=== PATIENT | male | born 1985 | race Caucasian/White ===

== ENCOUNTER 2022-01-19 09:40 | Outpatient (CLI) | payer OTHER, SELFPAY ==
--- OUTSIDE RECORDS SUMMARY | 2022-01-19 09:49 | XMS_ITS | Encounter Summary ---
:1985 Author Organization [employer] Address [address] [place] [address] Care Team Providers Name Role Phone Unavailable Primary Care Provider Unavailable Reason for Referral Procedure/Equipment (Routine) - Closed Specialty Diagnoses / Procedures Referred By Contact Refer red To Contact Diagnoses Metatarsalgia of both feet Plantar fasciitis Cresencio Wiley DPM [address] [place], [place] [address] Referral ID Status Reason Start Date Expiration Date Visits Requ ested Visits Authorized [id number] Closed 10/13/2021 01/12/2023 1 1 Scheduling Instructions Your provider has recommended an appoint ment with [facility]. You may call [phone] t o schedule your appointment. We suggest you call your health insurance company about your coverage and benefits for this appointment. Reason for Visit Reason Comments CONSULT Foot Pain Bilateral bone spurs Encounter Details Date Type Department Care Team Description 10/13/2021 Office Visit Cresencio Rouse, Metatarsalg ia of both feet (Primary Dx); [place] [address] [address] Plantar fasciitis Podiatric MedSurg [address] [address] [place] [address] [phone] Social History Tobacco Use Types Packs/Day Years Used Date Smoking Tobacco: Former Cigarettes 0.5 Quit : 02/08/2020 Smokeless Tobacco: Never Alcohol Use Standard Drinks/Week Comments Yes 0 (1 standard drink = 0.6 oz pure alcoho l) sarah Sex Assigned at Date Recorded Not on file documented as of this encounter Progress Notes Cresencio Wiley, DPM - 10/13/2021 1:30 PM CDT [facility] Foot & Ankle Surgery Date of Service: CC: bilateral foot pain PATIENT HISTORY: Ismael Nielson is a 36 y.o. old male being seen today for evaluation of a painful bilateral heel and forefot. These symptoms have been present for 2 years. They are worse when first ambulating in the morning or with activity following prolonged inactivity. Patient has previously attempted treatments c onsisting of new shoes, decreased activity, and OTC orthotics, but their symptoms persist. Denies bruising, swelling, redness, numbness. Review of Systems: Otherwise negative unless listed in HPI Past Medical History: No past medical history on file. Social History: Social History Socioeconomic History Marital status: Not on file Spouse name: Not on file Number of children: Not on file Years of education: Not on file Highest education level: Not on file Occupational History Not on file Tobacco Use Smoking status: Former Packs/day: 0.50 Types: Cigarettes Quit date: 02/08/2020 Years since quittin.6 Smokeless tobacco: Never Vaping Use Vaping Use: Never used Substance and Sexual Activity Alcohol use: Yes Comment: sarah Drug use: Yes Comment: THC/BBD gummies Sexual activity: Not on file Other Topics Concern Not on file Social History Narrative Not on file Social Determinants of Health Financial Resource Strain: Not on file Food Insecurity: Not on file Transportation Needs: Not on file Physical Activity: Not on file Intimate Partner Violence: Not on file Housing Stability: Not on file Family History: No family history on file. Allergies: No Known Allergies EXAM: General appearance: Patient is alert and fully cooperative with history & exam. No sign of distress is noted during the visit. Musculoskeletal: Pain is not reproducible at the plantar fascial insertion point with bilateral heelexam today. No localized swelling, bruising or gross deformity is noted. No evidence of Achilles insertion pain is noted. No evidence of plantar fascial lump or fibroma is noted. No evidence of localized degenerative arthritis is appreciated. No evidence of nerve induced heel pain is appreciated on exam. No evidence of calcaneal stress fracture is appreciated. No pain with palpation metatarsal heads bilateral. Mild decrease of medial arch height with WB b/l. Mildy antalgic gait. Vascular: DP and PT pulses are intact and regular bilaterally. No significant edema or varicosities noted. CFT and skin temperature is normal to both lower extremities. Neurologic: Lower extremity sensation is intact to light touch. No evidence of weakness or contracture in the lower extremities. No evidence of neuropathy. Dermatologic: Skin is intact to both lower extremities without significant lesions, rash or abrasion. No paronychia or evidence of soft tissue infection is noted. Imaging: No new IMPRESSION: Plantar fasciitis bilateral Metatarsalgia bilateral PLAN: The patient was educated on the etiology of plantar fasciitis today and provided with an informational handout. Conservative treatments for plantar fasciitis were discussed with the patient. They include icing for fifteen minutes three times a day, stretching exercises (which were demonstrated for thepatient today in clinic), NSAIDs if there is no contraindication, not going barefoot even while at home, and wearing supportive shoe gear at all times. Further treatments would include corticosteroid injections, which harbor a small risk of rupture of the plantar fascia, custom versus pele-hco-umblaprapvwyvucr, night splints, physical therapy with potential iontophoresis, immobilization in a Cam Walker. The patient voices understanding of these treatment options and would like to proceed with custom orthotics The patient will return if symptoms persist or worsen in the future. Cresencio Wiley DPM [facility] Foot & Ankle Surgery documented in this encounter Plan of Treatment Upcoming Encounters Date Type Specialty Care Team Description 04/13/2022 Appointment General Dentistry Georgie Matute , [facility] [address] [place] [address] (Wo rk) Scheduled Referrals Name Type Priority Associated Diagnoses Order S chedule Orthotics Order Referral Routine Metatarsalgia of both feet Ordered: 10/13/2021 Plantar fasciitis documented as of this encounter Visit Diagnoses Diagnosis Metatarsalgia of both feet - Primary Plantar fasciitis Plantar fascial fibromatosis documented in this encounter
--- OUTSIDE RECORDS SUMMARY | 2022-01-19 09:49 | XMS_ITS | Clinical Summary ---
:1985 Author Organization [facility] Address [address] [place] [address] Care Team Providers Name Role Phone Unavailable Primary Care Provider Unavailable Source Comments You are receiving this document as you are listed as the primary care provider,follow-up provider, or the patient has been referred to you for consultation.This is in compliance with the Medicare and Medicaid EHR Incentive Program,which states Providers who transition their patient to another setting of careor provider of care or refers their patient to another provider of care shouldprovide summarycare record for each transition of care or referral. [facility] Allergies No known active allergies Medications Medication Sig Dispensed Refills Start Date End Date Status Phentermine HCl 37.5 phentermine 37.5 mg capsule 0 Active MG capsule TAKE 1 CAPSULE BY MOUTH BLANCA RY DAY - MUST ADMINISTER 30 MINUTES BEFORE OR 1-2 HOURS AFTER BREAKFAST. Active Problems No known active problems Encounters Date Type Specialty Care Team Description 10/28/2021 Telemedicine Orthopedics Henrik Lockett, HARDEEP Metatar salgia of both feet (Primary Dx); Plantar fasciit is from Last 3 Months Social History Tobacco Use Types Packs/Day Years Used Date Smoking Tobacco: Former Cigarettes 0.5 Quit : 02/08/2020 Smokeless Tobacco: Never Tobacco Cessation: Counseling Given: Not Answered Alcohol Use Standard Drinks/Week Comments Yes 0 (1 standard drink = 0.6 oz pure alcoho l) sarah Sex Assigned at Date Recorded Not on file Last Filed Vital Signs Vital Sign Reading Time Taken Comments Blood Pressure - - Pulse 66 10/06/2021 1:59 PM CDT Temperature - - Respiratory Rate - - Oxygen Saturation - - Inhaled Oxygen Concentration - - Weight 122.5 kg (270 lb) 10/28/2021 9:50 AM CDT Height 180.3 cm (5' 11) 10/28/2021 9:50 AM CDT Body Mass Index 37.66 10/28/2021 9:50 AM CDT Plan of Treatment Upcoming Encounters Date Type Specialty Care Team Description 04/13/2022 Appointment General Dentistry Georgie Matute , [facility] [address] [place], [place] [phone] (Wo rk) Health Maintenance Due Date Last Done Comments Hep C Screening (Preventive 1985 Services) HepB (1) 1985 COVID-19 Vaccine (#1) 1985 HIV Screening (Preventive 2002 Services) Adult Preventive Visit 2004 Cholesterol 2021 Influenza (#1) 2021 12/29/2020, 10/30/2019, 11/29/2018 DTaP/Tdap/Td (2 - Tdap) 05/16/2024 05/16/2014 Zoster/Shingles (1 of 2) 2036 HPV Vaccine Aged Out No longer eligib le based on patient's age to complete this to pic HepA Aged Out No longer eligib le based on patient's age to complete this to pic Hib Aged Out No longer eligib le based on patient's age to complete this to pic IPV (Polio) Aged Out No longer eligib le based on patient's age to complete this to pic MCV4 Aged Out No longer eligib le based on patient's age to complete this to pic Pneumococcal Aged Out No longer eligib le based on patient's age to complete this to pic Insurance Payer Benefit Plan Subscriber ID Effective Phone Address Typ e / Group Dates [facility] [facility] [id number] 2020-Prese Commercial DENTAL PLAN FULLY nt INSURED DENTAL [facility] [id number] 2021-Prese Commercial INSURED nt [address] (Home) [place] [address] Ismael Nielson Personal/Family Self [address] (Home) [place] [phone] [place] (Work) [id number] Ismael Nielson Personal/Family Self [address]) [place] [address] Ismael Nielson Personal/Family Self [address] ([address]) [place] [address]
--- OUTSIDE RECORDS SUMMARY | 2022-01-19 09:49 | XMS_ITS | Encounter Summary ---
:1985 Author Organization [facility] Address [address] [place] [address] Care Team Providers Name Role Phone Unavailable Primary Care Provider Unavailable Reason for Visit Reason Comments Foot Pain Encounter Details Date Type Department Care Team Description 10/28/2021 Telemedicine [facility] Henrik Lockett, Metatars algia of both feet (Primary Dx); [facility] PA-C Plantar fasciitis [address] [place] [address] [place], [place] [phone] [id number] Social History Tobacco Use Types Packs/Day Years Used Date Smoking Tobacco: Former Cigarettes 0.5 Quit : 02/08/2020 Smokeless Tobacco: Never Alcohol Use Standard Drinks/Week Comments Yes 0 (1 standard drink = 0.6 oz pure alcoho l) sarah Sex Assigned at Date Recorded Not on file documented as of this encounter Last Filed Vital Signs Vital Sign Reading Time Taken Comments Blood Pressure - - Pulse - - Temperature - - Respiratory Rate - - Oxygen Saturation - - Inhaled Oxygen Concentration - - Weight 122.5 kg (270 lb) 10/28/2021 9:50 AM CDT Height 180.3 cm (5' 11) 10/28/2021 9:50 AM CDT Body Mass Index 37.66 10/28/2021 9:50 AM CDT documented in this encounter Patient Instructions Patient InstructionsSusie Renner MA - 10/28/2021 10:20 AM CDT Thank you for Choosing [facility] for your health care visit today. Henrik Lockett PA-C Sports Medicine and General Orthopedics Medication Requests: Prescriptions are not filled on weekends or on weekdays after 3:00 PM. For all medication refills: Request a refill using MyChart or contact your pharmacy. What is Know Your Cost? Know Your Cost is a service for patients and patient/members to call and receive personalized cost information and estimates across our care group. The phone number is (COST) Tuesday - Tuesday 8 AM to 5 PM Advanced Imaging Scheduling: To schedule an MRI, Ultrasound, or Image guided injection at [facility] please call [phone]. To schedule an MRI or CT at a [facility] please call [phone]. [facility] Workers' Compensation [address] [place] [address] (Phone) Email: [email or web address] Release of Information: Radiology/Imaging [address] [place] [address] (Phone) Health Information Management [address] [place] [address] (Phone) [employer] documented in this encounter Progress Notes Henrik Lockett PA-C - 10/28/2021 10:20 AM CDT Ismael Nielson [id number] [address] [facility] Orthopaedic Center Consultation 10/28/2021 A video visit was determined to be appropriate based on information provided during the consultation. Medication list and allergies were reviewed and updated as necessary. Chief Complaint: Bilateral foot pain. History of Present Illness: Ismael Nielson is a 36 y.o. male who presents for evaluation of bilateral foot pain that has been waxing and waning for the past 2 years, seen previously by a service establishment attendant and was recommended to be seenby Orthopedics. The pain is most localized about the heel and forefoot, and most felt after active days. He denies mechanical injuries or trauma. He has tried orthotics and the service establishment attendant recommended use of SuperFeet. He did a 5K run this past Tuesday morning with no pain and notes improvement over thepast few weeks. He is otherwise healthy with no medical problems. Allergies: Patient has no known allergies. Current Medications: The patient has a current medication list which includes the following prescription(s): phentermine hcl. Past Medical History: The patient has no past medical history on file. Past Surgical History: The patient has no past surgical history on file. Family History: The patient's family history is not on file. Social History: Former smoker, quit in 2020. He rarely consumes alcohol, but does use THC/BBD gummies. The General Medical History Form dated 10/28/2021 was updated and reviewed with the patient; this is located in [facility] in [facility]. Review of Systems: Positive for bilateral foot pain. No history of other heart, lung, liver, GI, or renal diseases, cancers, diabetes mellitus, or arthritis. Physical Exam: General: The patient is in no acute distress. Neuro: Answers questions appropriately. Alert and oriented x 3. Skin: Cool to touch. No erythema, ecchymosis, or lesions. Bilateral Ankle/Foot: Nontender. Full ROM of the foot and ankle. All tendons appear to be intact. Imaging: Deferred. Assessment: Diagnosis and Associated Orders ICD-10-CM 1. Metatarsalgia of both feet, improved M77.41 M77.42 2. Plantar fasciitis, improved M72.2 Plan: I discussed with the patient, in detail, the different treatment options available to them includingconservative management (rest, ice, oral pain medication, and activity modification), physical therapy, and the risks and benefits of cortisone injection. I discussed with the patient to wear shoes insi de the home, arch supports, such as a Birkenstock insole, a good stretching program for his calves, icing, modifying his activities and really mostly wearing quality shoes throughout his activities. The patient voiced understanding and will follow-up with me as needed. Total time spent discussing treatment with the patient as well as reviewing his medical records was over 15 minutes, of which 10 minutes were spent counseling. Scribe Disclosure: Scribed for Henrik Lockett PA-C by Jalen Lovett Scribe. I, Henrik Lockett PA-C, have personally reviewed and agree with the information provided by the scribe. Henrik Lockett PA-C documented in this encounter Plan of Treatment Upcoming Encounters Date Type Specialty Care Team Description 04/13/2022 Appointment General Dentistry Georgie Matute , [place] [address] [place] [address] (Wo rk) documented as of this encounter Visit Diagnoses Diagnosis Metatarsalgia of both feet - Primary Plantar fasciitis Plantar fascial fibromatosis documented in this encounter
--- OUTSIDE RECORDS SUMMARY | 2022-01-19 09:49 | XMS_ITS | Encounter Summary ---
:1985 Author [facility] Address [address] [place] [address] Care Team Providers Name Role Phone Unavailable Primary Care Provider Unavailable Encounter Details Date Type Department Care Team Description 08/05/2005 PN Conversion Only [facility] [address] [facility] [place] [address] Social History Tobacco Use Types Packs/Day Years Used Date Smoking Tobacco: Never Assessed Sex Assigned at Date Recorded Not on file documented as of this encounter Plan of Treatment Upcoming Encounters Date Type Specialty Care Team Description 04/13/2022 Appointment General Dentistry Georgie Matute , [facility] [address] [place], [place] [id number] (Wo rk) documented as of this encounter Visit Diagnoses Not on filedocumented in this encounter
--- OUTSIDE RECORDS SUMMARY | 2022-01-19 09:49 | XMS_ITS | Encounter Summary ---
:1985 Author Organization [facility] Address [address] [place] [address] Care Team Providers Name Role Phone Unavailable Primary Care Provider Unavailable Reason for Visit Reason Onset Date Comments COVID Questions 07/22/2019 Encounter Details Date Type Department Care Team Description 07/22/[address] Sp, Drive-Up Encounter for screening [address] [facility] [place] [address] (Primary Dx) [phone] Social History Tobacco Use Types Packs/Day Years Used Date Smoking Tobacco: Never Assessed Sex Assigned at Date Recorded Not on file documented as of this encounter Plan of Treatment Upcoming Encounters Date Type Specialty Care Team Description 04/13/2022 Appointment General Dentistry Georgie Matute , [facility] [address] [place], [place] [id number] (Wo rk) documented as of this encounter Procedures Procedure Name Priority Date/Time Associated Comments Diagnosis 2019 NOVEL Routine 07/22/2019 9:58 AM Encounter for Results for this CORONAVIRUS CDT screening for other procedur e are in viral diseases the results section. documented in this encounter Results Symptomatic - 2019 Novel Coronavirus (COVID-19) (07/22/2019 9:58 AM CDT) [facility] Method Time Signature COVID-19 Not Not 07/23/2019 [facility] Interpretation Detected Detected 12:30 AM CENTRAL LAB CDT Specimen Anatomical Collection Method Collection Time Receive d Time (Source) Location / / Volume Laterality Swab (Source Non-blood 07/22/2019 9:58 AM 0 Required) Collection / CDT 11:12 AM CDT Unknown Narrative [facility] - 07/23/2019 12:30 AM CDT Test performed by Nucleic Acid Amplification. This test has not been approved by the [facility], but has been submitted for authorization through the FDA's Emergency Use Authorization pathway. The performance characteristics of this assay have been established by [facility]. Singh Elliott MD LAB_1 Performing Organization Address City/State/ZIP Code Phon e Number [facility] [address] [address] documented in this encounter Visit Diagnoses Diagnosis Encounter for screening for other viral diseases - Primary documented in this encounter Additional Health Concerns Infection Onset Date Last Indicated Resolved Time R/O COVID19 07/22/2019 07/22/2019 07/23/2019 12:30 AM CDT documented as of this encounter
--- OUTSIDE RECORDS SUMMARY | 2022-01-19 09:49 | XMS_ITS | Encounter Summary ---
:1985 Author Organization [email or web address] Address [address] [place] [address] Care Team Providers Name Role Phone Unavailable Primary Care Provider Unavailable Reason for Visit Reason Comments Dental Exam Lower front two teeth are lo ose for many years Encounter Details Date Type Department Care Team Description 10/06/2021 Office Visit [facility] Georgie Matute, Riley al Exam (Lower Dentistry [facility] [place] [address] [place] [address] loose for many years) [place] [address] [phone] Social History Tobacco Use Types Packs/Day Years [...] - Inhaled Oxygen Concentration - - Weight - - Height - - Body Mass Index - - documented in this encounter Patient Instructions Patient InstructionsGeorgie Matute, RDH - 10/06/2021 1:50 PM CDT Your next hygiene recall is due 04/04/2022 YOUR PERSONAL DENTAL RISK REPORT CARIES (TOOTH DECAY) PERIODONTAL (GUM) DISEASE ORAL CANCER LOW mod high low MOD high LOW elevated ^ ^ ^ Risk Level: LOW How to Maintain Your Low Risk: Congratulations on your low risk for tooth decay. Making healthy life style choices including brushing twice a day; daily flossing; and healthy dietary choices should help you maintain this low risk. Risk Level: MODERATE Risk Factors: Have had a diagnosis of gum disease either with or without past treatment. Missing scheduled dental appointments. How to Reduce Your Risk: Return visit with the dental hygienist at 6 month intervals to assess periodontal condition and provide necessary treatment. Risk Level: LOW How to Maintain your Low Risk: Congratulations on your low risk for oral cancer. Making healthy life style choices such as not using tobacco and low to moderate alcohol use should help you maintain this low risk. Ismael, we look forward to seeing you at your next visit! Thank you for choosing [facility]. documented in this encounter Progress Notes Alexandrea Hull DDS - 10/06/2021 1:50 PM CDT HYGIENE PROPHY NOTE COLLABORATIVE AGREEMENT: The patient consents to have charting, radiographs, and prophylaxis by the dental hygienist performed with the understanding that this care is not a substitute for an examination by a dentist. These activities were performed under a collaborating agreement with Deedee Brock DDS (License #: [id number]) PROCEDURAL PAUSE: Patient identity verified: Yes Treatment plan/site verified with the patient: Yes Instruments/equipment verified: Yes Any medication/allergy contraindications: No PRESENTATION: Plaque: Generalized, light supra-gingival and sub-gingival Calculus: Generalized, moderate supra-gingival and sub-gingival Stain: None Bleeding: Generalized moderate Gingival tissue: Inflamed and Edematous Mucogingival concerns: Present recession ACTIVITIES: Hand scale, Ultrasonic scale, Essential selective polishing, and Flossed all contacts PATIENT EDUCATION: Caries risk, Periodontal risk, Oral cancer risk, and OHI Stressed daily floss and regular recalls NEXT PLANNED HYGIENE VISIT: Hygiene Prophy with exam Georgie Matute RDH 10/06/2021, 2:51 PM --End of Note-- Alexandrea Hull DDS - 10/06/2021 1:50 PM CDT NEW PATIENT EXAM NOTE REASON FOR VISIT/CHIEF COMPLAINT: Ismael is a 36 y.o. male who presents for Dental Exam (Lower front two teeth are loose for many years) CHART REVIEW: Reviewed with patient: Medical history, Dental history, Problem list, Periodontal charting, and Radiographs SOFT TISSUE, HEAD AND NECK EXAMINATION: Lips: Normal Tongue: Abnormal, crenations on the tongue Palate: Normal Throat: Normal Floor of the mouth: Normal Mucosa: Abnormal, bilateral linea alba Head and neck: Normal TMD EVALUATION: Palpation Pain: None Joint Sounds: None Pain with Range of Motion: None OCCLUSAL EXAMINATION: Angle relationship: Right molar: Class I Right cuspid: Class I Left molar: Class III Left cuspid:Class III Maxillary midline: WNL Mandibular midline: WNL Overbite: 1 mm Overjet: 1 mm Crossbite: 8 Space loss: ant diastima Crowding: Not evident Occlusion: All teeth Attrition: Normal Erosion: Absent Overall occlusal relationship: Stable COSMETIC CONCERNS: Patient's Perception: Acceptable Dentist's Perception: Acceptable TREATMENT REVIEW AND FOLLOW-UP: Discussed the dental findings, treatment options, and prognosis withthe patient. All questions answered and informed consent was obtained. Recommended Recall Interval: Examination: 6 months : Recall prophy: 6 months Planned Recall Interval: Examination: 6 months : Recall prophy: 6 months Pt has cheek biting habit, discussed ways to break the habit, with good tongue positioning , using cheek guards or using a deputy building guard , Pt had Ortho has decal on # 7,10 and # 11 and enamel; fracture on # 20 on F Next Planned Visit: recall Alexandrea Hull DDS 10/06/2021, 2:44 PM --End of Note-- documented in this encounter Plan of Treatment Upcoming Encounters Date Type Specialty Care Team Description 04/13/2022 Appointment General Dentistry Georgie Matute , [facility] [address] [place] [address] (Wo rk) Scheduled Orders Name Type Priority Associated Order Schedule Diagnoses PROPHYLAXIS-ADULT Dental Procedures Routine 1 Occ urrences RECALL starting 2021 PERIODIC ORAL Dental Procedures Routine 1 Occurre nces EVALUATION starting 2021 [id number] Dental Procedures Routine 1 Oc currences starting 2021 TOPICAL FLUORIDE Dental Procedures Routine 1 Occu rrences VARNISH starting 2021 documented as of this encounter Procedures Procedure Name Priority Date/Time Associated Diagnosis Comme nts FILM-PANORAMIC Routine 10/06/2021 1:50 PM Routine health CDT maintenance [id number] Routine 10/06/2021 1:50 PM Routine health CDT maintenance PROPHYLAXIS-ADULT RECALL Routine 10/06/2021 1:50 PM Routine he alth CDT maintenance COMPREHENSIVE ORAL Routine 10/06/2021 1:50 PM Routine health EVALUATION CDT maintenance 31 O EXISTING SEALANT E1 Routine 10/06/2021 12:00 AM CDT 18 O EXISTING SEALANT E1 Routine 10/06/2021 12:00 AM CDT 15 O EXISTING SEALANT E1 Routine 10/06/2021 12:00 AM CDT documented in this encounter Visit Diagnoses Diagnosis Routine health maintenance - Primary Routine general medical examination at a health care facility documented in this encounter
--- OUTSIDE RECORDS SUMMARY | 2022-01-19 09:50 | XMS_ITS | Encounter Summary ---
:1985 Author Organization [facility] Address [address] [place] [address] Care Team Providers Name Role Phone Unavailable Primary Care Provider Unavailable Encounter Details Date Type Department Care Team Description 08/05/2005 PN Conversion Only CONV BANK Social History Tobacco Use Types Packs/Day Years Used Date Smoking Tobacco: Never Assessed Sex Assigned at Date Recorded Not on file documented as of this encounter Plan of Treatment Upcoming Encounters Date Type Specialty Care Team Description 04/13/2022 Appointment General Dentistry Georgie Matute , [facility] [address] [place] [address] (Wo rk) documented as of this encounter Visit Diagnoses Not on filedocumented in this encounter
[2022-01-19 13:44] LABS: Albumin* 4.4 g/dL (3.3-5.0); Chloride* 106 mmol/L (96-114)
[2022-01-19 13:45] LABS: Potassium* 4.6 mmol/L (3.6-5.1); Sodium* 140 mmol/L (135-149)
[2022-01-19 13:47] LABS: Carbon Dioxide* 27 mmol/L (20-32); Cholesterol* 208 mg/dL (90-199); Creatinine* 0.8 mg/dL (0.5-1.5); Estimated Glomerular Filt Rate 118 ml/min; Total Protein* 6.7 g/dL (6.0-8.3)
[2022-01-19 13:48] LABS: Alanine Aminotransferase* 40 U/L (4-50); Alkaline Phosphatase* 84 U/L (40-150); Aspartate Amino Transferase* 22 U/L (12-35); Bilirubin Total* 0.6 mg/dL (0.1-1.5); Blood Urea Nitrogen* 15 mg/dL (5-24); Calcium* 9.4 mg/dL (8.4-10.6); Glucose* 101 mg/dL (60-115); HDL Cholesterol* 37 mg/dL (>=40); LDL Cholesterol Calculated 137 mg/dL (<100); Triglycerides* 168 mg/dL (40-149)
== END 2022-01-19 09:41 | disposition home or self-care (01) ==
PROVIDERS: PCP Family Medicine; Visit Provider Family Medicine
DX: E78.5 Hyperlipidemia, unspecified (principal); K76.0 Fatty (change of) liver, not elsewhere classified; E66.9 Obesity, unspecified
CPT/HCPCS: 80053; 80061

== ENCOUNTER 2023-01-12 09:51 | Outpatient (CLI) | payer OTHER, SELFPAY | END 2023-01-12 09:52 | disposition home or self-care (01) | PROVIDERS: PCP Family Medicine; Visit Provider Family Medicine | DX: E78.5 Hyperlipidemia, unspecified (principal); Z13.1 Encounter for screening for diabetes mellitus | CPT/HCPCS: 80048; 80061 ==

== ENCOUNTER 2023-12-26 14:47 | Outpatient (CLI) | payer OTHER, SELFPAY ==
--- OUTSIDE RECORDS SUMMARY | 2023-12-26 14:50 | XMS_ITS | Encounter Summary ---
Author Organization [facility] Address [address] [place] [address] Care Team Providers Care Cement Paver Name Role Phone Unavailable Primary Care Provider Unavailabl e Reason for Visit * Reason Comments Dental Hygiene Dental Exam CC: I think I'm gett ing tonsil stones, some pain on both sides in the back Encounter Details Date Type Department Care Team (Late st Contact Info) Description 11/02/2023 2:40 PM CDT Office Visit [facility] [place] [address] [place] [address] Mercedes Terrell RDH Dental Hygiene; Dental Exam (CC: I think I'm getting tonsil stones, some pain on both sides in the back) Social History Tobacco Use Types Packs/Day Years Used Date Smoking Tobacco: Former Cigarettes Q uit: 02/08/2020 Smokeless Tobacco: Never Alcohol Use Standard Drinks/Week Comments Yes 0 (1 standard drink = 0.6 oz pur e alcohol) sarah Sex and Gender Information Value Date Recorded Sex Assigned at Not on file Gender Identity Not on file Sexual Orientation Not on file documented as of this encounter Last Filed Vital Signs Vital Sign Reading Time Taken Comments Blood Pressure - - Pulse 67 11/02/2023 2:48 PM CDT Temperature - - Respiratory Rate - - Oxygen Saturation - - Inhaled Oxygen Concentration - - Weight - - Height - - Body Mass Index - - documented in this encounter Patient Instructions * Patient Instructions* Mercedes Terrell RDH - 11/02/2023 2:40 PM CDT Your next hygiene recall is due 04/30/2024 YOUR PERSONAL DENTAL RISK REPORT CARIES (TOOTH DECAY) PERIODONTAL (GUM) DISEASE ORAL CANCER LOW mod high LOW mod high low ELEVATED ^ ^ ^ Risk Level LOW How To Maintain Your Low Risk Instruction from dental professional on brushing, flossing, and use of oral hygiene products. Congratulations on your low risk for tooth decay. Making healthy life style choices including brushing twice a day; daily flossing; and healthy dietary choices should help you maintain this low risk.Risk Level LOW How To Maintain Your Low Risk Return visit with the dental hygienist at 6 month intervals to assess periodontal condition and provide necessary treatment. Congratulations on quitting tobacco. This can have a positive impact on risk for periodontal (gum) disease. Congratulations on your low risk for gum disease. Making healthy life style choices including brushing twice a day; daily flossing; and not using tobacco should help you maintain this low risk. Risk Level ELEVATED Risk Factors Use of tobacco. How to Reduce Your Risk Regular dental visits to assess soft tissue. Congratulations on quitting tobacco. This can have a positive impact on risk for oral cancer. Ismael, we look forward to seeing you at your next visit! Thank you for choosing [facility]. documented in this encounter Progress Notes * Stevie Reyes DDS - 11/02/2023 2:40 PM CDT RECALL EXAM NOTE REASON FOR VISIT/CHIEF COMPLAINT: Ismael is a 38 y.o. male who presents for Dental Hygiene and DentalExam (CC: I think I'm getting tonsil stones, some pain on both sides in the back) CHART REVIEW: Reviewed with patient: Medical history, Dental history, Problem list, Periodontal charting, and Radiographs. SOFT TISSUE, HEAD AND NECK EXAMINATION: Lips: normal Tongue: normal Palate: normal Throat: normal Floor of the mouth: normal Mucosa: cheek biting Head and neck: normal TMD EVALUATION: Palpation Pain: None Joint Sounds: None Pain with Range of Motion: None OCCLUSAL EXAMINATION: Unchanged COSMETIC CONCERNS: Patient's Perception: Acceptable Dentist's Perception: Acceptable TREATMENT REVIEW AND FOLLOW-UP: Discussed the Dental findings, Prognosis, and Treatment options with the patient. All questions answered and informed consent was obtained. Planned Recall Interval: Examination: 6 months Recall prophy: 6 months Exam: no treatment indicated. No findings in back of throat today. Informed pt tonsil stones can come and go. Can try warm salt water rinse or try to remove them if possible if the recur. Discussed cheek biting, pt does it during the day and is aware of it. Asked for recommendations to try to stop.Could wear NG during the day if not doing a lot of talking to prevent biting. Next Planned Visit: hygiene recall Your next hygiene recall is due 04/30/2024 YOUR PERSONAL DENTAL RISK REPORT CARIES (TOOTH DECAY) PERIODONTAL (GUM) DISEASE ORAL CANCER LOW mod high LOW mod high low ELEVATED ^ ^ ^ Risk Level LOW How To Maintain Your Low Risk Instruction from dental professional on brushing, flossing, and use of oral hygiene products. Congratulations on your low risk for tooth decay. Making healthy life style choices including brushing twice a day; daily flossing; and healthy dietary choices should help you maintain this low risk.Risk Level LOW How To Maintain Your Low Risk Return visit with the dental hygienist at 6 month intervals to assess periodontal condition and provide necessary treatment. Congratulations on quitting tobacco. This can have a positive impact on risk for periodontal (gum) disease. Congratulations on your low risk for gum disease. Making healthy life style choices including brushing twice a day; daily flossing; and not using tobacco should help you maintain this low risk. Risk Level ELEVATED Risk Factors Use of tobacco. How to Reduce Your Risk Regular dental visits to assess soft tissue. Congratulations on quitting tobacco. This can have a positive impact on risk for oral cancer. Ismael, we look forward to seeing you at your next visit! Thank you for choosing [facility]. Stevie Reyes DDS 11/02/2023, 5:18 PM --End of Note-- * Mercedes Terrell, [facility] - 11/02/2023 2:40 PM CDT HYGIENE PROPHY NOTE COLLABORATIVE AGREEMENT: The patient consents to have charting, radiographs, and prophylaxis by thedental hygienist performed with the understanding that this care is not a substitute for an examination by a dentist. These activities were performed under a collaborating agreement with Stevie Reyes DDS (License #: [id number]) PROCEDURAL PAUSE: Patient identity verified: Yes Treatment plan/site verified with the patient: Yes Instruments/equipment verified: Yes Any medication/allergy contraindications: No PRESENTATION: Plaque: Localized, Light interproximal Calculus: Localized, Moderate mandibular anterior and Generalized, Light interproximal and posterior buccal Stain: None Bleeding: Generalized Light Gingival tissue: Inflamed ACTIVITIES/EDUCATION: Hand scale, Essential selective polishing, Flossed all contacts, and OHI NEXT PLANNED HYGIENE VISIT: Hygiene Prophy with exam Mercedes Terrell RDH 11/02/2023, 3:16 PM --End of Note-- documented in this encounter Plan of Treatment Upcoming Encounters Date Type Department Care Team (Late st Contact Info) Description 05/17/2024 2:00 PM CDT Appointment [facility] [address] [place] [address] Mercedes Terrell RDH Scheduled Orders Name Type Priority Associated Diagnoses Order Schedule PROPHYLAXIS-ADULT RECALL Dental Procedures Routine 1 Occurrences starting 11/02/2023 PERIODIC ORAL EVALUATION Dental Procedures Routine 1 Occurrences starting 11/02/2023 [id number] Dental Procedures Routine 1 Occurrences starting 11/02/2023 documented as of this encounter Procedures Procedure Name Priority Date/Time Associated Diagnosis Comments PERIODIC ORAL EVALUATION Routine 11/02/2023 2:40 PM CDT Localized gingival recession PROPHYLAXIS-ADULT RECALL Routine 11/02/2023 2:40 PM CDT Localized gingival recession documented in this encounter Visit Diagnoses Diagnosis Localized gingival recession- Primary Gingival recession, localized documented in this encounter
--- OUTSIDE RECORDS SUMMARY | 2023-12-26 14:50 | XMS_ITS | Clinical Summary ---
Author Organization [facility] Address [address] [place] [address] Care Team Providers Care Computer Systems Security Analyst Name Role Phone Unavailable Primary Care Provider Unavailabl e Source Comments You are receiving this document as you are listed as the primary care provider,follow-up provider, or the patient has been referred to you for consultation.This is in compliance with the Medicare and[facility] Cent[facility]aid EHR Incentive Program,which states Providers who transition their patient to another setting of careor provider of care or refers their patient to another provider of care shouldprovide summary care record for each transition of care or referral. [facility] Allergies No known active allergies Medications Medication Sig Dispensed Refills Start Date End Date Status Phentermine HCl 37.5 MG capsule phentermine 37.5 mg capsule TAKE 1 CAPSULE BY MOUTH EVERY DAY - MUST ADMINISTER 30 MINUTES BEFORE OR 1-2 HOURS AFTER BREAKFAST. Active allopurinol (ZYLOPRIM) 300 MG tablet Take 1 Tablet (300 mg) by mouth daily. 03/11/2023 Active rosuvastatin (CRESTOR) 10 MG tablet Take 1 Tablet (10 mg) by mouth daily at bedtime. 03/11/2023 Active Active Problems No known active problems Encounters Date Type Department Care Team Description 11/02/2023 2:40 PM CDT Office Visit [facility] Dental [facility] [address] [place] [address] Dental Hygiene; Dental Exam (CC: I think I'm getting tonsil stones, some pain on both sides in the back) from Last 3 Months Social History Tobacco Use Types Packs/Day Years Used Date Smoking Tobacco: Former Cigarettes Q uit: 02/08/2020 Smokeless Tobacco: Never Tobacco Cessation:Counseling Given: Not Answered Alcohol Use Standard Drinks/Week Comments Yes 0 (1 standard drink = 0.6 oz pur e alcohol) sarah Sex and Gender Information Value Date Recorded Sex Assigned at Not on file Gender Identity Not on file Sexual Orientation Not on file Last Filed Vital Signs [...] Info) Description 05/17/2024 2:00 PM CDT Appointment [facility] [place] [address] [place] [address] Mercedes Terrell, [facility] Health Maintenance Due Date Last Done Comments Hep C Screening (Preventive Services) 1985 HIV Screening (Preventive Services) 2002 Adult Preventive Visit 2004 HepB (1) 2005 Cholesterol 2021 COVID-19 Vaccine (4 - 2023-2 5 season) 2023 01/23/2021, 06/02/2020, 05/06/2020 Influenza (#1) 2023 12/29/2020, 10/30/2019, 11/29/2018 DTaP/Tdap/Td (2 - Tdap) 05/16/2024 05/16/2014 Zoster/Shingles (1 of 2) 2036 HPV Vaccine Aged Out No longer eligi ble based on patient's age to complete this topic HepA Aged Out No longer eligi ble based on patient's age to complete this topic Hib Aged Out No longer eligi ble based on patient's age to complete this topic IPV (Polio) Aged Out No longer eligi ble based on patient's age to complete this topic RSV Aged Out No longer eligi ble based on patient's age to complete this topic MCV4 Aged Out No longer eligi ble based on patient's age to complete this topic Pneumococcal Aged Out No longer eligi ble based on patient's age to complete this topic Procedures Procedure Name Priority Date/Time Associated Diagnosis Comments PERIODIC ORAL EVALUATION Routine 11/02/2023 2:40 PM CDT Localized gingival recession PROPHYLAXIS-ADULT RECALL Routine 11/02/2023 2:40 PM CDT Localized gingival recession from Last 3 Months Ismael Nielson Personal/Family Self 1985 [address] [address] Ismael Nielson Personal/Family Self 1985 [address] [address] Ismael Nielson Personal/Family Self 1985 [address] [address]
== END 2023-12-26 14:48 | disposition home or self-care (01) ==
PROVIDERS: PCP Family Medicine; Visit Provider Family Medicine
DX: Z00.00 Encounter for general adult medical examination without abnormal findings (principal); E78.5 Hyperlipidemia, unspecified; Z13.1 Encounter for screening for diabetes mellitus; Z13.29 Encounter for screening for other suspected endocrine disorder
CPT/HCPCS: 80048; 80061; 84443

== ENCOUNTER 2024-12-06 14:25 | Outpatient (CLI) | payer OTHER, SELFPAY | END 2024-12-06 14:26 | disposition home or self-care (01) | PROVIDERS: PCP Family Medicine; Visit Provider Family Medicine | DX: E78.2 Mixed hyperlipidemia (principal) | CPT/HCPCS: 80053; 80061 ==